=== PATIENT | female | born 1955 | race Two or more races ===

== ENCOUNTER 2017-05-21 12:08 | Emergency (ER) | payer OTHER ==
--- NOTE | 2017-05-21 12:43 | ER Document Report ---
ED Medical Screen (RME) - General Chief Complaint: Blood Pressure Problem Stated Complaint: HIGH BLOOD PRESSURE Time Seen by Provider: 05/21/17 12:41 Notes: Patient presents with multiple complaints. She states she has had right facial twitching for greater than 10 years without a diagnosis. She also states that her right toenail has had a problem with infection and is now coming loose. She also states that the veins in her hands are swelling. In addition she says that she has been weak and tired and having trouble breathing. She also states that her blood pressure has not been being controlled with her medications. In addition she states that she has had some increased thirst and blurry vision. She states she currently does not have a primary care physician but goes to the [facility] here in [place]. TRAVEL OUTSIDE OF THE [place] IN LAST 30 DAYS: No - Related Data Allergies/Adverse Reactions: No Known Allergies Allergy (Unverified 05/21/17 12:26) Past Medical History - Social History Frequency of alcohol use: None Drug Abuse: None Renal/ Medical History: Denies: Hx Peritoneal Dialysis Physical Exam - Vital signs Vitals: Temp Pulse BP Pulse Ox 98.2 F 92 142/88 H 99 05/21/17 12:27 05/21/17 12:27 05/21/17 12:27 05/21/17 12:27 Course - Vital Signs Vital signs: Temp Pulse Resp BP Pulse Ox 98.2 F 92 142/88 H 99 05/21/17 12:27 05/21/17 12:27 05/21/17 12:27 05/21/17 12:27
[2017-05-21 13:23] LABS: ABSOLUTE LYMPHOCYTES (AUTO) 1.7 10^3/uL (0.5-4.7); ABSOLUTE MONOCYTES (AUTO) 0.5 10^3/uL (0.1-1.4); ABSOLUTE NEUT (AUTO) 2.4 10^3/uL (1.7-8.2); BASOPHILS % (AUTO) 0.5 % (0-2); EOSINOPHILS % (AUTO) 0.6 % (0-6); HEMATOCRIT 45.1 % (36.0-47.0); HEMOGLOBIN 14.5 g/dL (12.0-15.5); HGB HCT DIFFERENCE -1.6; LYMPHOCYTES % (AUTO) 37.7 % (13-45); MEAN CORPUSCULAR HEMOGLOBIN 30.2 pg (27.0-33.4); MEAN CORPUSCULAR HGB CONC 32.2 g/dL (32.0-36.0); MEAN CORPUSCULAR VOLUME 94 fl (80-97); MONOCYTES % (AUTO) 9.7 % (3-13); SEGMENTED NEUTROPHILS % (AUTO) 51.5 % (42-78); WHITE BLOOD COUNT 4.6 10^3/uL (4.0-10.5)
[2017-05-21 13:29] LABS: ALANINE AMINOTRANSFERASE 32 U/L (9-52); ALBUMIN 4.5 g/dL (3.5-5.0); ALKALINE PHOSPHATASE 117 U/L (38-126); ANION GAP 17 (5-19); ASPARTATE AMINO TRANSFERASE 15 U/L (14-36); BILIRUBIN,DIRECT 0.4 mg/dL (0.0-0.4); BILIRUBIN,TOTAL 1.2 mg/dL (0.2-1.3); BLOOD UREA NITROGEN 13 mg/dL (7-20); CALCIUM 9.9 mg/dL (8.4-10.2); CARBON DIOXIDE 22 mmol/L (22-30); CHLORIDE 94 mmol/L (98-107); CREATININE RESULT 0.83 mg/dL (0.52-1.25); POTASSIUM 4.2 mmol/L (3.6-5.0); SODIUM 132.6 mmol/L (137-145); TOTAL PROTEIN 7.2 g/dL (6.3-8.2)
[2017-05-21 13:34] LABS: APPEARANCE,URINE CLEAR; BILIRUBIN,URINE NEGATIVE (NEGATIVE); GLUCOSE, URINE >=500 mg/dL (NEGATIVE); KETONES,URINE 20 mg/dL (NEGATIVE); LEUKOCYTE ESTERASE,URINE NEGATIVE (NEGATIVE); NITRITE,URINE NEGATIVE (NEGATIVE); PROTEIN,URINE NEGATIVE (NEGATIVE); URINE SPECIFIC GRAVITY 1.031; UROBILINOGEN,URINE NEGATIVE mg/dL (<2.0)
[2017-05-21 14:07] LABS: GLUCOSE 530 mg/dL (75-110)
[2017-05-21] MEDS ORDERED: INSULIN REG, HUMAN 100 UNIT/ML 3 ML VIAL (PYX) SUBCUT ONE (14:42)
[2017-05-21] MEDS ORDERED: FLUCONAZOLE 100 MG TABLET PO ONE (14:43)
--- NOTE | 2017-05-21 14:51 | ER Document Report ---
ED General - General Chief Complaint: Blood Pressure Problem Stated Complaint: HIGH BLOOD PRESSURE Time Seen by Provider: 05/21/17 12:41 Mode of Arrival: Ambulatory Information source: Patient Notes: Pt is here for multiple complaints including facial twitch that has been present for decades, memory "problems" for months, right-sided neck pain for months to years, left fungus under the left toenail 1 year. Patient states that she went off of her diabetes medications, metformin, and when off her cholesterol medications, atorvastatin, because she thought they were causing all of these issues. She denies fever, chills, headache. TRAVEL OUTSIDE OF THE [place] IN LAST 30 DAYS: No - Related Data Allergies/Adverse Reactions: No Known Allergies Allergy (Unverified 05/21/17 12:26) Past Medical History - General Information source: Patient - Social History Smoking Status: Former Smoker Frequency of alcohol use: None Drug Abuse: None Family History: Reviewed & Not Pertinent Patient has suicidal ideation: No Patient has homicidal ideation: No Renal/ Medical History: Denies: Hx Peritoneal Dialysis Review of Systems - Review of Systems Constitutional: No symptoms reported EENT: No symptoms reported Cardiovascular: See HPI Respiratory: No symptoms reported Gastrointestinal: No symptoms reported Genitourinary: No symptoms reported Female Genitourinary: No symptoms reported Musculoskeletal: No symptoms reported Skin: See HPI Hematologic/Lymphatic: No symptoms reported Neurological/Psychological: No symptoms reported Physical Exam - Vital signs Vitals: Temp Pulse BP Pulse Ox 98.2 F 92 142/88 H 99 05/21/17 12:27 05/21/17 12:27 05/21/17 12:27 05/21/17 12:27 - Notes Notes: PHYSICAL EXAMINATION: GENERAL: Well-appearing and in no acute distress. HEAD: Atraumatic, normocephalic. EYES: Pupils equal round and reactive to light, extraocular movements intact, sclera anicteric, conjunctiva are normal. NECK: Normal range of motion, supple without lymphadenopathy LUNGS: CTAB and equal. No wheezes rales or rhonchi. HEART: Regular rate and rhythm without murmurs EXTREMITIES: Normal range of motion, no pitting edema. No cyanosis. NEUROLOGICAL: Constant facial twitch to the right side of the face, otherwise cranial nerves grossly intact. Normal sensory/motor exams. PSYCH: Anxious, wandering thoughts SKIN: Warm, Dry, normal turgor, great toenail on the left foot thickened and white in appearance, coming apart from toe Course - Re-evaluation Re-evalutation: 05/21/17 15:13 pt given insulin here for glucose of 530, anion gap is normal, patient does not have any nausea or vomiting, no abdominal pain. I also will prescribe Diflucan once weekly for patient's toe fungus, advised her to follow-up with primary care provider that she has an appointment with next week to continue this or discontinue this. Her liver function is normal today on lab work. I did advise her over and over again that this is an emergency department for urgent issues. She asked if she could continue her cholesterol medication, I told her yes. She asked me if she could stop her blood pressure medication I told her no. - Vital Signs Vital signs: Temp Pulse Resp BP Pulse Ox 98.6 F 90 146/79 H 99 05/21/17 15:45 05/21/17 15:45 05/21/17 15:45 05/21/17 15:45 - Laboratory Result Diagrams: 05/21/17 13:00 05/21/17 13:00 Laboratory results interpreted by me: 05/21/17 05/21/17 13:00 13:00 Sodium 132.6 L Chloride 94 L Glucose 530 H* Urine Glucose (UA) >=500 H Urine Ketones 20 H Discharge - Discharge Clinical Impression: Fungal toenail infection Diabetes type 2, uncontrolled Qualifiers: Diabetes mellitus complication status: with unspecified complications Diabetes mellitus termite inspector insulin use: without termite inspector use Qualified Code(s): E11.8 - Type 2 diabetes mellitus with unspecified complications HTN (hypertension) Qualifiers: Hypertension type: unspecified secondary hypertension Qualified Code(s): I15.9 - Secondary hypertension, unspecified Condition: Stable Disposition: HOME, SELF-CARE Instructions: Diabetes ([facility]), Fungal Nail Infection ([facility]), High Blood Pressure ([facility]) Additional Instructions: You need to see your primary care doctor, the only things found today were a toenail fungal infection and very high blood sugar. Go back on your diabetic medications, your high sugar is the reason for a lot of your symptoms that you came in for today. Don't go off ANY of your medicines without first consulting with your primary doctor. Return immediately for any new or worsening symptoms. Follow up with primary care provider, call tomorrow to make followup appointment. Prescriptions: Fluconazole [Diflucan] 200 mg PO ASDIR #4 tablet Metformin HCl 500 mg PO BID #30 tablet Referrals: [facility] [Primary Care Provider] - Follow up as needed
[2017-05-21 17:56] VITALS: BP 146/79
== END 2017-05-21 15:45 | disposition home or self-care (01) ==
LOC: ER 12:08
DX: B35.1 Tinea unguium (principal); E11.9 Type 2 diabetes mellitus without complications; I10 Essential (primary) hypertension; Z91.14 Patient's other noncompliance with medication regimen
CPT/HCPCS: 99283; 36415; 82962; 85025; 80053; 81001; J1815

== ENCOUNTER → 2017-07-05 | Outpatient (CLI) | payer OTHER ==
[2017-07-05 14:21] LABS: CHOLESTEROL 225.25 mg/dL (0-200); Direct HDL 48 mg/dL (>40); TRIGLYCERIDES 104 mg/dL (<150)
[2017-07-05 14:32] LABS: DIRECT LDL 158 mg/dL (<100)
== END ==
LOC: OD 13:04
DX: E11.9 Type 2 diabetes mellitus without complications (principal)
CPT/HCPCS: 36415; 80061; 83036

== ENCOUNTER → 2017-07-12 | Outpatient (CLI) | payer OTHER | LOC: WI 10:58 | DX: Z12.31 Encounter for screening mammogram for malignant neoplasm of breast (principal) | CPT/HCPCS: 77067; G0202 ==

== ENCOUNTER → 2017-11-19 | Outpatient (CLI) | payer OTHER ==
[2017-11-19 19:27] LABS: ABSOLUTE LYMPHOCYTES (AUTO) 2.2 10^3/uL (0.5-4.7); ABSOLUTE MONOCYTES (AUTO) 0.5 10^3/uL (0.1-1.4); ABSOLUTE NEUT (AUTO) 1.8 10^3/uL (1.7-8.2); BASOPHILS % (AUTO) 0.9 % (0-2); HEMATOCRIT 40.5 % (36.0-47.0); HEMOGLOBIN 13.5 g/dL (12.0-15.5); LYMPHOCYTES % (AUTO) 48.2 % (13-45); MEAN CORPUSCULAR HEMOGLOBIN 30.6 pg (27.0-33.4); MEAN CORPUSCULAR HGB CONC 33.4 g/dL (32.0-36.0); MEAN CORPUSCULAR VOLUME 92 fl (80-97); MONOCYTES % (AUTO) 10.1 % (3-13); PLATELET COUNT 262 10^3/uL (150-450); RED BLOOD COUNT 4.42 10^6/uL (3.72-5.28); RED CELL DISTRIBUTION WIDTH 14.1 % (11.5-14.0); SEGMENTED NEUTROPHILS % (AUTO) 39.8 % (42-78); TOTAL CELLS COUNTED % (AUTO) 100 %; WHITE BLOOD COUNT 4.6 10^3/uL (4.0-10.5)
[2017-11-19 19:54] LABS: ALANINE AMINOTRANSFERASE 22 U/L (9-52); ALBUMIN 4.5 g/dL (3.5-5.0); ALKALINE PHOSPHATASE 82 U/L (38-126); ANION GAP 11 (5-19); ASPARTATE AMINO TRANSFERASE 26 U/L (14-36); BILIRUBIN,DIRECT 0.2 mg/dL (0.0-0.4); BILIRUBIN,TOTAL 0.6 mg/dL (0.2-1.3); BLOOD UREA NITROGEN 14 mg/dL (7-20); CALCIUM 9.6 mg/dL (8.4-10.2); CARBON DIOXIDE 22 mmol/L (22-30); CHLORIDE 112 mmol/L (98-107); CHOLESTEROL 203.09 mg/dL (0-200); GLUCOSE 93 mg/dL (75-110); POTASSIUM 4.9 mmol/L (3.6-5.0); SODIUM 145.4 mmol/L (137-145); TOTAL PROTEIN 6.9 g/dL (6.3-8.2); TRIGLYCERIDES 73 mg/dL (<150)
[2017-11-19 20:05] LABS: DIRECT LDL 136 mg/dL (<100)
== END ==
LOC: CCC 17:02
DX: E11.9 Type 2 diabetes mellitus without complications (principal)
CPT/HCPCS: 36415; 80053; 80061; 83036; 84443; 85025

== ENCOUNTER → 2017-11-21 | Outpatient (CLI) | payer OTHER ==
[~2017-11-21] MED LIST: DIAZEPAM 5 MG TABLET ONE
--- NOTE | 2017-11-21 16:44 | RADIOLOGY REPORT (SQ) ---
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 TECHNIQUE: Multiplanar imaging includes noncontrasted T1, T2, FLAIR, diffusion with ADC map and post gadolinium contrast T1 sequences. Images stored on PACS. Additional thin section coronal and axial fat-sat T2, T1 precontrast and T1 fat-sat post contrasted i mages through the orbits and central skullbase were obtained. CONTRAST TYPE AND DOSE: 10 mL Multihance. RENAL FUNCTION: Estimated GFR 60 LIMITATIONS: None. FINDINGS: ANATOMY: No developmental anomalies. Normal vascular flow voids. Pituitary fossa normal fo r age. CSF SPACES: Normal in size and contour. No hemorrhage. CEREBRUM: Sulci and gyri normal in size and contour. Minimal age-appropriate increased deep perivent ricular white matter signal on FLAIR imaging. No evidence of hemorrhage, mass, or extraaxial fluid co llection. No abnormal enhancement post contrast. POSTERIOR FOSSA: No signal alteration. No hemorrhage. No edema, masses, or mass effect. Internal jez tory canals, cerebellopontine angles, mastoids normal. No enhancing lesions. No abnormal enhancement post contrast. DIFFUSION IMAGING: Negative for acute or subacute infarction. ORBITS: No abnormal masses or enhancement. Globes, optic nerves, extraocular muscles, intra and extr aconal fat. Normal cavernous sinuses. Normal optic chiasm. PARANASAL SINUSES: No fluid levels. Mucosa normal. OTHER: No MR evidence of posterior communicating artery aneurysm. IMPRESSION: ESSENTIALLY NORMAL MRI OF THE BRAIN WITHOUT AND WITH INTRAVENOUS GADOLINIUM CONTRAST. EVIDENCE OF ACUTE STROKE: NO. TECHNICAL DOCUMENTATION: JOB ID: [id number] [employer]- All Rights Reserved
== END ==
LOC: RAD 12:14
DX: H02.9 Unspecified disorder of eyelid (principal); Q67.0 Congenital facial asymmetry
CPT/HCPCS: 70553; A9577

== ENCOUNTER → 2018-07-14 | Outpatient (CLI) | payer MEDICARE, OTHER ==
--- NOTE | 2018-07-15 09:30 | WOMENS IMAGING REPORT ---
EXAM DESCRIPTION: 3D SCREENING MAMMO BILAT COMPLETED DATE/TIME: 07/14/2018 2:49 pm REASON FOR STUDY: BILATERAL SCREENING 3D Z12.31 ENCNTR SCREEN MAMMOGRAM FOR MALIGNANT NEOPLASM OF B RE COMPARISON: 07/12/2017 TECHNIQUE: Standard craniocaudal and mediolateral oblique views of each breast recorded using digita l acquisition and breast tomosynthesis. LIMITATIONS: None. FINDINGS: Findings present which are benign by mammographic criteria. No suspicious masses, calcifi cations or architectural distortion. Pertinent benign findings: Stable benign bilateral breast parenchymal calcifications Read with the assistance of CAD. .[facility] - R2 Cenova Version 1.3 .[facility] - R2 Cenova Version 1.3 .[facility] - R2 Cenova Version 2.4 .[facility] - R2 Cenova Version 2.4 .[facility] - R2 Special [employer] Messenger Version 9.2 Benign mammographic findings may include one or more of the following: Smooth masses, popcorn/rim/co arse calcifications, asymmetries, post-procedure changes, and lesions with long-standing stability. IMPRESSION: BENIGN MAMMOGRAPHIC FINDINGS. BIRADS 2 BREAST DENSITY: c. The breasts are heterogeneously dense, which may obscure small masses. BIRAD: 2 BENIGN FINDING(S) RECOMMENDATION: RECOMMENDATION: ROUTINE SCREENING Please continue yearly bilateral screening tomosynthesis in June 2019 COMMENT: The patient has been notified of the results by letter per SA requirements. Additional no tification policies are in place for contacting patient with suspicious or incomplete findings. Quality ID #[id number]: The [employer] recommends an annual screening mammogram for women aged 40 years or over. This facility utilizes a reminder system to ensure that all patients receive reminder letters, and/or direct phone calls for appointments. This includes reminders for routine scr eening mammograms, diagnostic mammograms, or other Breast Imaging Interventions when appropriate. Th is patient will be placed in the appropriate reminder system. The [employer] (ACR) has developed recommendations for screening MRI of the breast s in certain patient populations, to be used in conjunction with mammography. Breast MRI surveillanc e may be appropriate for women with more than 20% lifetime risk of developing breast cancer as deter mined by genetic testing, significant family history of the disease, or history of mantle radiation f or Hodgkins Disease. ACR Practice Guidelines 2008. DBT Technology DBT is a type of tomographic mammography. With conventional mammography, overlapping breast tissue ma y make lesions difficult to detect, even with good compression. DBT uses an x-ray tube that rotates a round the breast, taking images at different angles. These images are then combined to create thin sl ices of the breast that the radiologist can view as a 3D reconstruction. The [employer] unit can perform full-field digital mammograms (2D imaging); or DBT (3D imaging); or both, in a combination mode that quickly performs both the mammogram and the tomosynthesis scan while the breast is still compressed. PQRS 6045F: Fluoroscopic imaging is not utilized for breast tomosynthesis. TECHNICAL DOCUMENTATION: FINDING NUMBER: (1) ASSESSMENT: (1) JOB ID: [id number] [employer]- All Rights Reserved Reading location - IP/workstation name: [email or web address]
== END ==
LOC: WI 13:12
PROVIDERS: ATTEND Physician Assistant
DX: Z12.31 Encounter for screening mammogram for malignant neoplasm of breast (principal)
CPT/HCPCS: 77063; 77067